=== PATIENT | female | born 1955 | race Caucasian/White ===

== ENCOUNTER 2017-01-27 12:11 | Observation (INO) | payer MEDICAID ==
[2017-01-27] MEDS ORDERED: Morphine 2 MG/ML Syringe IVPUSH ONE (12:24)
[2017-01-27 12:48] VITALS: BP 124/51
[2017-01-27] MEDS ORDERED: Aspirin 81 MG Tab.Chew PO ONE (12:54)
[2017-01-27] MEDS ORDERED: Nitroglycerin 0.4 MG Tab.SL SL ONE (12:54)
[2017-01-27] MEDS ORDERED: Morphine 10 MG/ML Syringe ONE (13:19)
[2017-01-27] MEDS ORDERED: ALBUTEROL IH PRN (13:45)
[2017-01-27] MEDS ORDERED: Non-Formulary Medication 1 Each (Nitroglycerin [Nitrostat] 0.4 MG) SL PRN (13:45)
[2017-01-27] MEDS ORDERED: Sodium Chloride 0.9% 10 ML Syringe FLUSH PRN (13:49)
--- NOTE | 2017-01-27 16:59 | PN ---
DATE OF VISIT: This patient was seen in the emergency room for chest pain, relieved by nitro temporarily, it did reoccur later on and morphine was used 4 mg x1. Cardiac workup was negative. The patient did have a recent stress test just a few days ago with the initial reports showing negative for reversible perfusion defects with an ejection fraction of 73%. I did consult with Dr. Ramirez. The patient will be admitted for observation with followup troponin scheduled at 4:30 this afternoon. For further details, refer to the appropriate sections in [facility]. CRS/MODL /[id number]
--- NOTE | 2017-01-27 17:27 | CR ---
Date of Service: 01/27/17 Clinical Data: Chest pain. AP CHEST Comparison is made to a prior exam dated 04/05/2012. The patient has taken a poor inspiration. The heart size is within normal limits. The lungs are clear. No pneumothorax. No pleural effusions. No areas of consolidation. [id number] [facility]
[2017-01-27] MEDS ORDERED: Non-Formulary Medication 1 Each (Fluticasone/Salmeterol [Advair 250-50 Diskus] 1 EACH) IH SCH (20:00)
--- NOTE | 2017-01-30 08:59 | ER ---
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 The patient states it feels like pressure and the pain has been as high as 5/10. She has not been coughing. She denies any problems with shortness of breath, wheezing, nausea, or vomiting. The patient states she did take nitroglycerin twice, and each time it helped. She currently rates her pain at 5/10. The patient tells me that she recently had a stress test just a few days ago, and she states that she failed it. She states when they gave her the medication she did not respond well to the medication. The patient tells me that she was put on a beta-cuca medication and is being monitored by Dr. Ramirez. PAST MEDICAL HISTORY: 1. Obesity, status post gastric bypass. 2. Nonsurgical dumping syndrome. 3. Gallbladder disease. 4. Chronic low back pain. 5. GERD. 6. Hypertension. 7. Bronchitis or asthma. OBJECTIVE: GENERAL APPEARANCE: The patient is awake and alert and in no obvious distress. VITAL SIGNS: Reviewed. Initial blood pressure 124/51. She is afebrile. Pulse is 60. O2 sats are 98% on room air. HEENT: Oral mucous membranes are moist. Tonsils not enlarged or injected. Pharynx noninflamed. NECK: Supple. LUNGS: Clear. CARDIAC: Heart sounds distinct without murmurs. Regular rate and rhythm. ABDOMEN: Soft and protuberant. There is mild pressure with palpation that she states is chronic. SKIN: Warm and dry. EXTREMITIES: The patient does not have edema of her ankles or feet. INITIAL TREATMENT: Nitroglycerin was given one more time which did relieve the patient's chest pain. An EKG shows a normal sinus rhythm with a ventricular rate of 55. LABORATORY DATA: Labs done today included CBC and PT/INR, they are both normal. Troponin, normal. BNP is normal. Comprehensive metabolic panel is unremarkable as well. Chest x-ray appears normal to me. DIAGNOSIS: Chest pain with a negative initial workup. TREATMENT PLAN: At this point, I did consult with Dr. Ramirez. The patient will be admitted for observation with a repeat troponin later on this afternoon. At this point, the patient did start to have an increase in chest pain again and tightness. She was given morphine 4 mg which quickly reduced her chest pain symptoms. Dr Ramirez will assume care for the patient at this point. SALLIE/HONG /[id number] MTDD
--- NOTE | 2017-02-14 09:23 | PCM.DCSUM1 ---
Discharge Summary - Discharge Data Discharge Date: 01/27/17 Discharge Disposition: Home, Self-Care 01 Condition: Good - Discharge Diagnosis/Problem(s) (1) Angina pectoris SNOMED Code(s): 047798235 ICD Code: I20.9 - ANGINA PECTORIS, UNSPECIFIED Status: Acute - Patient Instructions Diet: Usual Diet as Tolerated Fluid Restriction: 2000 mL Activity: As Tolerated Driving: Do Not Drive - Discharge Plan Home Medications: Home Meds Albuterol [Ventolin HFA] 2 inhalation IH Q6H PRN 04/09/16 [History] Ferrous Sulfate 325 mg PO WITHDINNER 04/09/16 [History] Flaxseed/Omega3,6,9/Fatty Acid [Flax Seed Oil 1,300 mg Softgel] 1 each PO DAILY 04/09/16 [History] Gabapentin [Neurontin] 100 mg PO QID 04/09/16 [History] Nitroglycerin [Nitrostat] 0.4 mg SL ASDIRECTED PRN 04/09/16 [History] Raymond-3/DHA/Epa/Fish Oil [Fish Oil 1,000 mg Softgel] 1 each PO BEDTIME 04/09/16 [History] Papaya [Papaya Enzyme] 1 each PO DAILY 04/09/16 [History] Simvastatin [Zocor] 40 mg PO BEDTIME 04/09/16 [History] Triamterene/Hydrochlorothiazid [Triamterene-HCTZ 37.5-25 MG] 1 each PO DAILY [History] MV,Ca,Min/FA/Herbal No.157 [Estroven Max Strength Caplet] 1 tab PO QPM 08/10/16 [History] Vitamin B Complex 100 NO.2 [Balanced B-100] 100 mg PO BID 08/11/16 [History] Calcium Citrate/Vitamin D3 [Citracal-Vit D 200 mg-250 Tab] 4 each PO DAILY 01/13 [History] Docusate Sodium [Doc-Q-Lace] 100 mg PO DAILY 01/13/17 [History] Ergocalciferol (Vitamin D2) [Vitamin D] 2,000 unit PO DAILY 01/13/17 [History] Esomeprazole [NexIUM] 40 mg PO ACBREAKFAST 01/13/17 [History] Fluticasone/Salmeterol [Advair 250-50 Diskus] 1 each IH BID 01/13/17 [History] Glucosamine/D3/Boswellia Jaqui [Osteo Bi-Flex Tablet] 1 each PO BID 01/13/17 [ History] Hydrochlorothiazide 25 mg PO DAILY 01/13/17 [History] Lysine 500 mg PO DAILY 01/13/17 [History] Metoprolol Succinate [Toprol XL] 25 mg PO DAILY 01/13/17 [History] Multivitamin/Iron/Folic Acid [Sentry Tablet] 1 each PO BID 01/13/17 [History] Oxybutynin [Oxybutynin ER] 5 mg PO DAILY 01/13/17 [History] Potassium Gluconate 99 mg PO DAILY 01/13/17 [History] Ubidecarenone [Coq-10] 100 mg PO BID 01/13/17 [History] Patient Handouts: Angina Pectoris Forms: ED Department Discharge Referrals: Dann Ramirez MD [Physician] - - Discharge Summary/Plan Comment DC Time >30 min.: Yes Discharge Summary/Plan Comment: Counseled on angina symptoms. Discussed negative cardiac markers or EKG changes. Discussed follow up in clinic and further evaluation by Cardiology and possible further management procedures. Patient to f/u with me scheduled in clinic. F/u as directed and as needed. - Patient Data Vitals - Most Recent: Last Vital Signs Temp 36.8 C 01/27/17 12:15 Pulse 55 L 01/27/17 14:48 Resp 12 01/27/17 12:15 BP 124/51 L 01/27/17 12:15 Pulse Ox 98 01/27/17 12:15 Weight - Most Recent: 77.111 kg Med Orders - Current: Current Medications Discontinued Medications Aspirin (Aspirin) 324 mg PO ONETIME ONE Stop: 01/27/17 12:55 Last Admin: 01/27/17 12:18 Dose: 324 mg Morphine Sulfate (Morphine) 4 mg IVPUSH ONETIME ONE Stop: 01/27/17 12:25 Last Admin: 01/27/17 13:24 Dose: 4 mg Morphine Sulfate (Morphine) Confirm Administered Dose 10 mg .ROUTE .STK-MED ONE Stop: 01/27/17 13:20 Nitroglycerin (Nitrostat) 0.4 mg SL ONETIME ONE Stop: 01/27/17 12:55 Last Admin: 01/27/17 12:15 Dose: 0.4 mg Non-Formulary Medication (Albuterol [Ventolin Hfa]) 2 inhalation IH Q6H PRN PRN Reason: Other Non-Formulary Medication (Fluticasone/Salmeterol [Advair 250-50 Diskus]) 1 each IH BID RUPAL Non-Formulary Medication (Nitroglycerin [Nitrostat]) 0.4 mg SL ASDIRECTED PRN PRN Reason: Chest Pain Sodium Chloride (Saline Flush) 10 ml FLUSH ASDIRECTED PRN PRN Reason: Keep Vein Open *Q Meaningful Use (DIS) - VTE *Q VTE Criteria *Q: - Stroke *Q Stroke Criteria *Q: - AMI *Q AMI Criteria *Q:
== END 2017-01-27 17:19 | disposition home or self-care (01) ==
LOC: LB.ED 12:11 → LB.MS 13:43
PROVIDERS: ADMIT Physician Assistant; ATTEND Family Medicine
DX: I20.9 Angina pectoris, unspecified (principal); E66.9 Obesity, unspecified; I10 Essential (primary) hypertension; K21.9 Gastro-esophageal reflux disease without esophagitis; Z88.0 Allergy status to penicillin; Z88.2 Allergy status to sulfonamides; Z88.8 Allergy status to other drugs, medicaments and biological substances; Z79.899 Other long term (current) drug therapy; Z91.018 Allergy to other foods; Z98.84 Bariatric surgery status; G89.29 Other chronic pain; M54.5 Low back pain
CPT/HCPCS: 36415; 71010; 80053; 83880; 84484; 85025; 85610; 93005; 96374; 99285; A9270; G0378; J2270

== ENCOUNTER 2017-02-04 11:11 | Emergency (ER) | payer MEDICAID ==
[2017-02-04 11:45] VITALS: BP 114/49
--- NOTE | 2017-02-04 11:47 | EDM.PDOC ---
ED HPI GENERAL MEDICAL PROBLEM - General Time Seen by Provider: 02/04/17 11:15 Source of Information: Reports: Patient History Limitations: Reports: No limitations - History of Present Illness INITIAL COMMENTS - FREE TEXT/NARRATIVE: According to patient she has been having chest pain since last night. Hurts over the midchest. Pain got worse around 10 am today. Is not asso with exertion. Pt was lifting some empty boxes around 10 am and got worse. No shortness of breath, wheezing. No cough, fever or chills. No sweating. Onset Date: 02/03/17 Onset Time: 20:00 Duration: Getting worse, Waxing/waning Quality: Reports: Ache Severity: moderate - Related Data Allergies Allergy/AdvReac Type Severity Reaction Status Date / Time aspirin Allergy Cannot Verified 01/13/17 14:48 Remember Penicillins Allergy Other Verified 01/13/17 14:48 Sulfa (Sulfonamide Allergy Other Verified 01/13/17 14:48 Antibiotics) Home Meds: Home Meds Albuterol [Ventolin HFA] 2 inhalation IH Q6H PRN 04/09/16 [History] Ferrous Sulfate 325 mg PO WITHDINNER 04/09/16 [History] Flaxseed/Omega3,6,9/Fatty Acid [Flax Seed Oil 1,300 mg Softgel] 1 each PO DAILY 04/09/16 [History] Gabapentin [Neurontin] 100 mg PO QID 04/09/16 [History] Nitroglycerin [Nitrostat] 0.4 mg SL ASDIRECTED PRN 04/09/16 [History] Sears-3/DHA/Epa/Fish Oil [Fish Oil 1,000 mg Softgel] 1 each PO BEDTIME 04/09/16 [History] Papaya [Papaya Enzyme] 1 each PO DAILY 04/09/16 [History] Simvastatin [Zocor] 40 mg PO BEDTIME 04/09/16 [History] Triamterene/Hydrochlorothiazid [Triamterene-HCTZ 37.5-25 MG] 1 each PO DAILY [History] MV,Ca,Min/FA/Herbal No.157 [Estroven Max Strength Caplet] 1 tab PO QPM 08/10/16 [History] Vitamin B Complex 100 NO.2 [Balanced B-100] 100 mg PO BID 08/11/16 [History] Calcium Citrate/Vitamin D3 [Citracal-Vit D 200 mg-250 Tab] 4 each PO DAILY 01/13 [History] Docusate Sodium [Doc-Q-Lace] 100 mg PO DAILY 01/13/17 [History] Ergocalciferol (Vitamin D2) [Vitamin D] 2,000 unit PO DAILY 01/13/17 [History] Esomeprazole [NexIUM] 40 mg PO ACBREAKFAST 01/13/17 [History] Fluticasone/Salmeterol [Advair 250-50 Diskus] 1 each IH BID 01/13/17 [History] Glucosamine/D3/Boswellia Jaqui [Osteo Bi-Flex Tablet] 1 each PO BID 01/13/17 [ History] Hydrochlorothiazide 25 mg PO DAILY 01/13/17 [History] Lysine 500 mg PO DAILY 01/13/17 [History] Metoprolol Succinate [Toprol XL] 25 mg PO DAILY 01/13/17 [History] Multivitamin/Iron/Folic Acid [Sentry Tablet] 1 each PO BID 01/13/17 [History] Oxybutynin [Oxybutynin ER] 5 mg PO DAILY 01/13/17 [History] Potassium Gluconate 99 mg PO DAILY 01/13/17 [History] Ubidecarenone [Coq-10] 100 mg PO BID 01/13/17 [History] Past Medical History HEENT History: Reports: Cataract Cardiovascular History: Reports: Hypertension Respiratory History: Reports: Asthma, Sleep apnea Gastrointestinal History: Reports: GERD Genitourinary History: Reports: None Other OB/BYN History: tubal , parity: 0, gravity: 0 Musculoskeletal History: Reports: Arthritis, Back pain, chronic, Osteoarthritis Neurological History: Reports: Seizure Other Neuro History: seizures as a child none as an adult Endocrine/Metabolic History: Reports: Diabetes, type II Hematologic History: Reports: B12 deficiency Oncologic (Cancer) History: Reports: None - Past Surgical History HEENT Surgical History: Reports: None Other HEENT Surgeries/Procedures: wears glasses, hearing fine Respiratory Surgical History: Reports: None GI Surgical History: Reports: Bariatric procedure, EGD, Hernia, abdominal, Other (see below) Other GI Surgeries/Procedures: tummy tuck Female Surgical History: Reports: D&C Other Female Surgeries/Procedures: UI : with pad use: 4-5 , stress UI, LBP , and hip pain history. frequency of leakage per day: through the day, with any motion. urge UI as well: clinical impression: mixed UI: Sandvick outcome tool score would be indicative of severe level Endocrine Surgical History: Reports: None Neurological Surgical History: Reports: None Other Neurological Surgeries/Procedures: seizures when young, past history of HAs Musculoskeletal Surgical History: Reports: None Other Musculoskeletal Surgeries/Procedures:: LBP, hip pain, pelvic floor weakness Social & Family History - Family History Cardiac: Reports: Heart failure - Tobacco Use Smoking Status *Q: Unknown Ever Smoked Second Hand Smoke Exposure: No - Caffeine Use Caffeine Use: Reports: None - Recreational Drug Use Recreational Drug Use: No Drug Use in Last 12 Months: Yes ED ROS GENERAL - Review of Systems Review Of Systems: See Below Constitutional: Denies: fever, chills, malaise, weakness, diaphoresis HEENT: Denies: Hearing loss, Nosebleed, Throat pain, Throat swelling Respiratory: Denies: Shortness of Breath, Wheezing, Cough, Sputum Cardiovascular: Reports: Chest pain. Denies: Dyspnea on exertion, Edema, Lightheadedness GI/Abdominal: Denies: Abdominal pain, Anorexia, Nausea, Vomiting : Denies: dysuria, flank pain Musculoskeletal: Denies: shoulder pain, arm pain, joint pain, joint swelling Skin: Denies: jaundice, mottled, pruritis, rash Neurological: Denies: Confusion, Dizziness ED EXAM, GENERAL - Physical Exam Exam: See Below Exam Limited By: No limitations General Appearance: alert, WD/WN, no apparent distress Eye Exam: bilateral eye: EOMI, PERRL Ears: normal external exam, normal canal, hearing grossly normal, normal TMs Ear Exam: bilateral ear: auricle normal, canal normal, TM normal Nose: normal inspection, normal mucosa, no blood Throat/Mouth: Normal inspection, Normal lips, Normal teeth, Normal gums, Normal oropharynx, Normal voice, No airway compromise Head: atraumatic, normocephalic Neck: normal inspection, supple, non-tender, full range of motion Respiratory/Chest: no respiratory distress, lungs clear, normal breath sounds, no accessory muscle use, other (Tender over the upper costochondral junctions to pressure. very sensitive to pressure.) Cardiovascular: normal peripheral pulses, regular rate, rhythm, no edema, no gallop, no JVD, no murmur, no rub GI/Abdominal: normal bowel sounds, soft, non tender, no organomegaly, no distention, no abnormal bruit, no mass EKG INTERPRETATION EKG Date: 02/04/17 Rhythm: NSR Rate (beats/min): 60 [place]: normal P-wave: present QRS: normal ST-T: normal QT: normal Course - Vital Signs Text/Narrative:: Pt's EKG is in sinus rhythm and regular. Her CBC is normal and troponin is negative. She gonzales shave elicitable chest pain over the upper costochondral junctions. She has developed costochondritis. I have advised tylenol 500mg 3 times daily and intermittent heat 3-4 times daily. Last Recorded V/S: Last Vital Signs Temp 97 F 02/04/17 11:40 Pulse 63 02/04/17 11:40 Resp 16 02/04/17 11:40 BP 114/49 L 02/04/17 11:40 Pulse Ox 100 02/04/17 11:40 - Orders/Labs/Meds Orders: Active Orders 24 hr Category Date Time Status EKG Documentation Completion [RC] ASDIRECTED Care 02/04/17 11:32 Ordered Labs: Laboratory Tests 02/04/17 02/04/17 Range/Units 11:40 11:40 WBC 9.2 (4.0-11.0) K/uL RBC 4.45 (3.80-5.80) M/uL Hgb 12.6 (11.5-16.5) g/dL Hct 37.9 (37.0-47.0) % MCV 85 (76-96) fL MCH 28.3 (27.0-32.0) pg MCHC 33.2 (31.0-35.0) g/dL RDW 14.6 (11.0-16.0) % Plt Count 279 (150-500) K/uL MPV 9.5 (6.0-10.0) fL Neut % (Auto) 71.7 H (45.0-70.0) % Lymph % (Auto) 18.7 L (20.0-40.0) % [place] % (Auto) 8.4 (3.0-10.0) % Eos % (Auto) 1.0 (1.0-5.0) % Baso % (Auto) 0.2 (0.0-0.5) % Neut # (Auto) 6.61 (2.00-7.50) K/uL Lymph # (Auto) 1.72 (1.50-4.00) K/uL [place] # (Auto) 0.77 (0.20-0.80) K/uL Eos # (Auto) 0.09 (0.04-0.40) K/uL Baso # (Auto) 0.02 (0.02-0.10) K/uL Troponin I < 0.017 (0.000-0.060) ng/mL Departure - Departure Time of Disposition: 12:30 Disposition: Home, Self-Care 01 Condition: fair Clinical Impression: Costochondritis Referrals: PCP,Unknown [Primary Care Provider] - - Problem List & Annotations (1) Costochondritis SNOMED Code(s): 57051081 Code(s): M94.0 - CHONDROCOSTAL JUNCTION SYNDROME [TIETZE] Status: Acute Current Visit: Yes - Problem List Review Problem List Initiated/Reviewed/Updated: Yes - My Orders Last 24 Hours: My Active Orders 02/04/17 11:32 EKG Documentation Completion [RC] ASDIRECTED - Assessment/Plan Last 24 Hours: My Active Orders 02/04/17 11:32 EKG Documentation Completion [RC] ASDIRECTED Assessment:: Costochondritis Plan: Pt's EKG is in sinus rhythm and regular. Her CBC is normal and troponin is negative. She does shave elicitable chest pain over the upper costochondral junctions. She has developed costochondritis. I have advised tylenol 500mg 3 times daily and intermittent heat 3-4 times daily. Followup with primary care of monday if symptoms worsen.
== END 2017-02-04 12:15 | disposition home or self-care (01) ==
LOC: LB.ED 11:11
DX: M94.0 Chondrocostal junction syndrome [Tietze] (principal); I10 Essential (primary) hypertension; J45.909 Unspecified asthma, uncomplicated; K21.9 Gastro-esophageal reflux disease without esophagitis; M19.90 Unspecified osteoarthritis, unspecified site; E11.9 Type 2 diabetes mellitus without complications; Z79.899 Other long term (current) drug therapy; Z88.0 Allergy status to penicillin; Z88.2 Allergy status to sulfonamides; Z88.6 Allergy status to analgesic agent; Z98.84 Bariatric surgery status
CPT/HCPCS: 36415; 84484; 85025; 93005; 99285-25

== ENCOUNTER 2017-03-07 11:23 | Emergency (ER) | payer MEDICAID ==
[2017-03-07] MEDS ORDERED: Sodium Chloride 0.9% 10 ML Syringe FLUSH PRN (12:05)
[2017-03-07 14:53] VITALS: BP 112/49
--- NOTE | 2017-03-08 06:43 | ER ---
HISTORY OF PRESENT ILLNESS: The patient came to the ER this morning with approximately 12 hours of intermittent chest discomfort that goes to her back and would also go up to her left shoulder. She denies any other problems associated with this. No fevers. No nausea, vomiting, or diarrhea. No shortness of breath. No dyspnea on exertion. No palpitations. No diaphoresis. No recent trauma. She does have a history of gastric bypass, mild intermittent asthma, hypothyroidism, adult onset diabetes, hypertension, hyperlipidemia, history of SVT, and history of electrolyte abnormalities. PHYSICAL EXAMINATION: GENERAL: Reveals an anxious female, alert and oriented x3. No acute distress. VITAL SIGNS: Room air saturation 99%, heart rate 75, blood pressure upon admission 179/51, after she calmed down her systolics dropped into the 105+/-5 range. SKIN: Warm and dry. EYES: Show EOMI, PERRLA. HEART: Shows a regular rate and rhythm. No murmurs, rubs, or gallops. No S3, no S4. LUNGS: Clear. ABDOMEN: Soft. Bowel sounds x4. No mass nor organomegaly. She does have some mild right upper quadrant tenderness. BACK: Shows no CVA or cord tenderness. EXTREMITIES: Show no clubbing, cyanosis, or edema. No palpable cords. NEURO: Intact. ASSESSMENT: Atypical chest pain, not cardiac. She also is noted to have hypomagnesemia on her laboratories. PLAN: The patient had an EKG done, which was unchanged from her baseline. Troponins were negative. White count was normal. CMP was normal except for sugar of 212. TSH was normal. Magnesium is low at 1.4. The patient received 1 g of magnesium IV. After the patient completed her IV therapy, she was able to walk around and move without any new complaints. We talked about in the future of changing her diuretic. She might do better with some other diuretic such as Aldactone. She has had problems with her electrolytes (NA/K) in the past.In the meantime, I told her not to change her medicines to start magnesium [id number] daily and to follow up in clinic next week as we have some outside labs still pending. She will be made up-to-date with her monitoring of diabetes and her gastric bypass.Thyroid monitoring will be done from today's lab work. She does have a Cardiology followup for her atypical chest pain. She was seen by roll plugger last week who felt the chest pain was noncardiac in nature. However, due to risk factors, they will do an outpatient angiogram. and it is as It is unlikely that today's symptoms are cardiac in nature. Should the patient worsen she can return to hospital or clinic for further evaluation. SHAE /[id number] MTDD
[2017-03-09 16:37] LABS: UNSATURATED IRON BIND CAPACITY 322 ug/dL (112-347)
== END 2017-03-07 14:22 | disposition home or self-care (01) ==
LOC: LB.ED 11:23
DX: R07.89 Other chest pain (principal); E83.42 Hypomagnesemia; I10 Essential (primary) hypertension; J45.909 Unspecified asthma, uncomplicated; E03.9 Hypothyroidism, unspecified; E78.5 Hyperlipidemia, unspecified; E11.9 Type 2 diabetes mellitus without complications; Z98.84 Bariatric surgery status
CPT/HCPCS: 36415; 80053; 81001; 82043; 82150; 82607; 82728; 83036; 83540; 83550; 83690; 83735; 84443; 84484; 85025; 85651; 93005; 99285; J3475

== ENCOUNTER 2018-12-12 16:35 | Emergency (ER) | payer MEDICAID ==
[2018-12-12] MEDS ORDERED: Aspirin 81 MG Tab.Chew PO ONE ×2 (17:05→17:08)
[2018-12-12] MEDS ORDERED: Sodium Chloride 0.9% 10 ML Syringe FLUSH PRN (17:07)
--- NOTE | 2018-12-12 17:16 | EDM.PDOC ---
ED HPI GENERAL MEDICAL PROBLEM - General Chief Complaint: Chest Pain Stated Complaint: chest pain Time Seen by Provider: 12/12/18 17:05 Source of Information: Reports: Patient, RN History Limitations: Reports: No Limitations - History of Present Illness INITIAL COMMENTS - FREE TEXT/NARRATIVE: 63 yr female presents with chest pain that started around 2pm today. 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 States she did take nitro 1 tablet and one tablet of medication for anxiety and symptoms were relieved. She was feeling very cold at this time and thought she was low on her blood sugar and she took 1 glucose tablet and 1 piece of candy. States her left hand was hurting and she did feel some nausea with this. No pain into the jaw and none in the back. She did have some tea and warmed up with blankets. States she did have a couple BM today at this time and no diarrhea and BM was soft. She is still feeling cold. - Related Data Allergies Allergy/AdvReac Type Severity Reaction Status Date / Time Penicillins Allergy Other Verified 12/12/18 17:40 Sulfa (Sulfonamide Allergy Other Verified 12/12/18 17:40 Antibiotics) Home Meds: Home Meds Albuterol [Ventolin HFA] 2 inhalation IH Q6H PRN 04/09/16 [History] Ferrous Sulfate 325 mg PO WITHDINNER 04/09/16 [History] Flaxseed/Omega3,6,9/Fatty Acid [Flax Seed Oil 1,300 mg Softgel] 1 each PO DAILY 04/09/16 [History] Gabapentin [Neurontin] 100 mg PO QID 04/09/16 [History] Nitroglycerin [Nitrostat] 0.4 mg SL ASDIRECTED PRN 04/09/16 [History] [place]-3/DHA/Epa/Fish Oil [Fish Oil 1,000 mg Softgel] 1 each PO BEDTIME 04/09/16 [History] Papaya [Papaya Enzyme] 1 each PO DAILY 04/09/16 [History] Simvastatin [Zocor] 40 mg PO BEDTIME 04/09/16 [History] Triamterene/Hydrochlorothiazid [Triamterene-HCTZ 37.5-25 MG] 1 each PO DAILY [History] MV,Ca,Min/FA/Herbal No.157 [Estroven Max Strength Caplet] 1 tab PO QPM 08/10/16 [History] Vitamin B Complex 100 NO.2 [Balanced B-100] 100 mg PO BID 08/11/16 [History] Calcium Citrate/Vitamin D3 [Citracal-Vit D 200 mg-250 Tab] 4 each PO DAILY 01/13 [History] Docusate Sodium [Doc-Q-Lace] 100 mg PO DAILY 01/13/17 [History] Ergocalciferol (Vitamin D2) [Vitamin D] 2,000 unit PO DAILY 01/13/17 [History] Esomeprazole [NexIUM] 40 mg PO ACBREAKFAST 01/13/17 [History] Fluticasone/Salmeterol [Advair 250-50 Diskus] 1 each IH BID 01/13/17 [History] Glucosamine/D3/Boswellia Jaqui [Osteo Bi-Flex Tablet] 1 each PO BID 01/13/17 [ History] Hydrochlorothiazide 25 mg PO DAILY 01/13/17 [History] Lysine 500 mg PO DAILY 01/13/17 [History] Metoprolol Succinate [Toprol XL] 25 mg PO DAILY 01/13/17 [History] Multivitamin/Iron/Folic Acid [Sentry Tablet] 1 each PO BID 01/13/17 [History] Oxybutynin [Oxybutynin ER] 5 mg PO DAILY 01/13/17 [History] Potassium Gluconate 99 mg PO DAILY 01/13/17 [History] Ubidecarenone [Coq-10] 100 mg PO BID 01/13/17 [History] Ciprofloxacin HCl [Cipro] 500 mg PO BID #8 tablet 12/12/18 [Rx] LORazepam [Ativan] 0.5 mg PO Q8HR PRN 12/12/18 [History] Past Medical History HEENT History: Reports: Cataract Cardiovascular History: Reports: Hypertension Respiratory History: Reports: Asthma, Sleep Apnea Gastrointestinal History: Reports: GERD Genitourinary History: Reports: None 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 , parity: 0, gravity: 0 Musculoskeletal History: Reports: Arthritis, Back Pain, Chronic, Osteoarthritis Neurological History: Reports: Seizure Other Neuro History: seizures as a child none as an adult Endocrine/Metabolic History: Reports: Diabetes, Type II Hematologic History: Reports: B12 Deficiency Oncologic (Cancer) History: Reports: None - Infectious Disease History Infectious Disease History: Reports: None - Past Surgical History HEENT Surgical History: Reports: None Other HEENT Surgeries/Procedures: wears glasses, hearing fine Other Cardiovascular Surgeries/Procedures: reports she is scheduled for Cardiac Cath in [facility] 03/10/17 GI Surgical History: Reports: Bariatric Procedure, EGD, Hernia, Abdominal, Other (See Below) Female Surgical History: Reports: D&C Other Female Surgeries/Procedures: UI : with pad use: 4-5 , stress UI, LBP , and hip pain history. frequency of leakage per day: through the day, with any motion. urge UI as well: clinical impression: mixed UI: [place] outcome tool score would be indicative of severe level Endocrine Surgical History: Reports: None Neurological Surgical History: Reports: None Other Neurological Surgeries/Procedures: seizures when young, past history of HAs Musculoskeletal Surgical History: Reports: None Social & Family History - Family History Family Medical History: Noncontributory Cardiac: Reports: Heart Failure - Caffeine Use Caffeine Use: Reports: None ED ROS GENERAL - Review of Systems Review Of Systems: See Below Constitutional: Reports: Fever, Chills, Weakness HEENT: Reports: No Symptoms Respiratory: Reports: No Symptoms Cardiovascular: Reports: Chest Pain GI/Abdominal: Reports: No Symptoms : Reports: Other (wears incontinent pad) Musculoskeletal: Reports: No Symptoms Skin: Reports: No Symptoms Neurological: Reports: No Symptoms Psychiatric: Reports: No Symptoms Hematologic/Lymphatic: Reports: No Symptoms ED EXAM, GENERAL - Physical Exam Exam: See Below Exam Limited By: No Limitations General Appearance: Alert, No Apparent Distress Ears: Normal External Exam, Hearing Grossly Normal Nose: Normal Inspection, Normal Mucosa Throat/Mouth: Normal Inspection, Normal Lips, Normal Voice, No Airway Compromise Head: Atraumatic, Normocephalic Neck: Normal Inspection, Supple, Non-Tender Respiratory/Chest: No Respiratory Distress, Lungs Clear, Normal Breath Sounds Cardiovascular: Normal Peripheral Pulses, Regular Rate, Rhythm, No Edema GI/Abdominal: Soft, Non-Tender Back Exam: Normal Inspection Extremities: Normal Inspection, Non-Tender, No Pedal Edema Neurological: Alert, Oriented, Normal Cognition Psychiatric: Normal Affect, Normal Mood Skin Exam: Warm, Dry, Normal Color Lymphatic: No Adenopathy EKG INTERPRETATION EKG Date: 12/12/18 Time: 16:47 Rhythm: NSR Comstock: Normal P-Wave: Present QRS: Normal ST-T: Normal QT: Normal Course - Vital Signs Last Recorded V/S: Last Vital Signs Temp 100.4 F 12/12/18 17:09 Pulse 82 12/12/18 17:43 Resp 16 12/12/18 17:09 BP 108/47 L 12/12/18 17:43 Pulse Ox 100 12/12/18 17:09 - Orders/Labs/Meds Orders: Active Orders 24 hr Category Date Time Status Cardiac Monitoring [RC] .As Directed Care 12/12/18 17:04 Active EKG Documentation Completion [RC] ASDIRECTED Care 12/12/18 16:48 Active CULTURE URINE [RM] Stat Lab 12/12/18 18:15 Sodium Chloride 0.9% [Saline Flush] Med 12/12/18 17:07 Active 10 ml FLUSH ASDIRECTED PRN Saline Lock Insert [OM.PC] Routine Oth 12/12/18 17:07 Ordered Medication Orders Sodium Chloride (Saline Flush) 10 ml FLUSH ASDIRECTED PRN PRN Reason: Keep Vein Open Labs: Laboratory Tests 12/12/18 12/12/18 12/12/18 Range/Units 17:00 17:00 17:42 WBC 16.3 H D (4.0-11.0) K/uL RBC 4.50 (3.80-5.80) M/uL Hgb 12.8 (11.5-16.5) g/dL Hct 38.6 (37.0-47.0) % MCV 86 (76-96) fL MCH 28.4 (27.0-32.0) pg MCHC 33.2 (31.0-35.0) g/dL RDW 14.6 (11.0-16.0) % Plt Count 287 (150-500) K/uL MPV 9.2 (6.0-10.0) fL Neut % (Auto) 91.0 H (45.0-70.0) % Lymph % (Auto) 4.2 L (20.0-40.0) % Citrus % (Auto) 4.4 (3.0-10.0) % Eos % (Auto) 0.3 L (1.0-5.0) % Baso % (Auto) 0.1 (0.0-0.5) % Neut # (Auto) 14.85 H (2.00-7.50) K/uL Lymph # (Auto) 0.69 L (1.50-4.00) K/uL Citrus # (Auto) 0.71 (0.20-0.80) K/uL Eos # (Auto) 0.05 (0.04-0.40) K/uL Baso # (Auto) 0.02 (0.02-0.10) K/uL Sodium 137 (136-145) mmol/L Potassium 3.8 (3.5-5.1) mmol/L Chloride 98 (98-107) mmol/L Carbon Dioxide 30.5 (21.0-32.0) mmol/L Anion Gap 12.3 (5.0-15.0) mmol/L BUN 20 (8-26) mg/dL Creatinine 0.73 (0.55-1.02) mg/dL Est Cr Clr Drug Dosing TNP Estimated GFR (MDRD) > 60 (>60) MLS/MIN BUN/Creatinine Ratio 27.4 H (6-25) Glucose 106 H (74-100) mg/dL Calcium 9.3 (8.5-10.1) mg/dL Total Bilirubin 1.0 D (0.0-1.0) mg/dL AST 38 H (15-37) U/L ALT 69 (12-78) U/L Alkaline Phosphatase 51 (46-116) U/L Troponin I < 0.017 (0.000-0.060) ng/mL Total Protein 7.5 (6.4-8.2) g/dL Albumin 3.6 (3.4-5.0) g/dL Globulin 3.9 (2.2-4.2) g/dL Albumin/Globulin Ratio 0.9 (0.8-2.0) Urine Color Yellow Urine Appearance Slightly cloudy (CLEAR) Urine pH 7.5 (5.0-8.0) Ur Specific [place] 1.020 (1.003-1.030) Urine Protein Negative (NEGATIVE) mg/dL Urine Glucose (UA) Negative (NEGATIVE) mg/dL Urine Ketones Negative (NEGATIVE) mg/dL Urine Occult Blood Negative (NEGATIVE) Urine Nitrite Positive H (NEGATIVE) Urine Bilirubin Negative (NEGATIVE) Urine Urobilinogen 0.2 (0.2-1.0) E.U./dL Ur Leukocyte Esterase Negative (NEGATIVE) Urine RBC 0-5 H /HPF Urine WBC 0-5 H /HPF Ur Squamous Epith Cells Few /HPF Urine Bacteria Few /HPF Meds: Medications Generic Name Dose Route Start Last Admin Trade Name Freq PRN Reason Stop Dose Admin Sodium Chloride 10 ml 12/12/18 17:07 Saline Flush FLUSH ASDIRECTED PRN Keep Vein Open Discontinued Medications Generic Name Dose Route Start Last Admin Trade Name Freq PRN Reason Stop Dose Admin Aspirin 162 mg 12/12/18 17:05 Aspirin PO 12/12/18 17:06 ONETIME ONE Aspirin 81 mg 12/12/18 17:08 Aspirin PO 12/12/18 17:09 ONETIME ONE - Re-Assessments/Exams Free Text/Narrative Re-Assessment/Exam: 12/12/18 18:03 Review of EKG with NSR, elevated WBC noted. Troponins are negative today. Will get U/A w micro. States some lightheadedness with getting up to bathroom. States she did take the anxiety medication today and does notice this makes her feel lightheaded. 12/12/18 18:31 U/A is positive nitrites. Will treat with Cipro 500 mg PO bid X 7 days. Rx in ER is for 3 days. Additional 4 days sent to pharmacy. Recommend rest today, increase fluid intake by 2 more glasses of water daily, change peripad more frequently. Recommend eating before taking antibiotic. Limit use of medication for anxiety. If need to take this, try taking 0.5 tablet as the full tablet made her feel light headed. Will discharge to care of . 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 Take Cipro 2 x day for 7 days. Return to clinic next week to see Deepika. Call [phone]. Drink plenty of fluids and change pad often if able. - My Orders Last 24 Hours: My Active Orders 12/12/18 16:48 EKG Documentation Completion [RC] ASDIRECTED 12/12/18 17:04 Cardiac Monitoring [RC] .As Directed 12/12/18 17:07 Sodium Chloride 0.9% [Saline Flush] 10 ml FLUSH ASDIRECTED PRN Saline Lock Insert [OM.PC] Routine 12/12/18 18:15 CULTURE URINE [RM] Stat - Assessment/Plan Last 24 Hours: My Active Orders 12/12/18 16:48 EKG Documentation Completion [RC] ASDIRECTED 12/12/18 17:04 Cardiac Monitoring [RC] .As Directed 12/12/18 17:07 Sodium Chloride 0.9% [Saline Flush] 10 ml FLUSH ASDIRECTED PRN Saline Lock Insert [OM.PC] Routine 12/12/18 18:15 CULTURE URINE [RM] Stat Plan: U/A is positive nitrites. Will treat with Cipro 500 mg PO bid X 7 days. Rx in ER is for 3 days. Additional 4 days sent to pharmacy. Recommend rest today, increase fluid intake by 2 more glasses of water daily, change peripad more frequently. Recommend eating before taking antibiotic. Limit use of medication for anxiety. If need to take this, try taking 0.5 tablet as the full tablet made her feel light headed. Will discharge to care of .
[2018-12-12 17:44] VITALS: BP 108/47
[2018-12-12] MEDS ORDERED: Ciprofloxacin 500 MG Tab ONE (18:15)
== END 2018-12-12 18:30 | disposition home or self-care (01) ==
LOC: LB.ED 16:35
DX: N39.0 Urinary tract infection, site not specified (principal); I10 Essential (primary) hypertension; K21.9 Gastro-esophageal reflux disease without esophagitis; Z88.0 Allergy status to penicillin; Z88.2 Allergy status to sulfonamides; Z79.899 Other long term (current) drug therapy
CPT/HCPCS: 36415; 80053; 81001; 84484; 85025; 87086; 87088; 87186; 93005; 99284-25; A9270-GY

== ENCOUNTER 2019-02-03 03:48 | Observation (INO) | payer MEDICAID ==
[2019-02-03] MEDS: Ondansetron 4 MG Tab.DIS PO ONE ×2 (04:11→04:23)
[2019-02-03] MEDS ORDERED: Sodium Chloride 0.9% 10 ML Syringe FLUSH PRN (05:05)
[2019-02-03] MEDS ORDERED: Prochlorperazine 10 MG in Sodium Chloride 0.9% 50 ML IV ONE (05:06)
[2019-02-03] MEDS ORDERED: Sodium Chloride 0.9% 1,000 ML IV SCH (05:15)
[2019-02-03] MEDS ORDERED: NS + KCl 20mEq/L 1,000 ML ONE (09:00)
[2019-02-03] MEDS ORDERED: Potassium Chloride 20 MEQ Tab.ER PO ONE (09:05)
[2019-02-03] MEDS ORDERED: NS + KCl 20mEq/L 1,000 ML IV SCH (09:30)
[2019-02-03 09:57] VITALS: BP 116/57
--- NOTE | 2019-02-03 15:07 | ER ---
OBSERVATION NOTE HISTORY: The patient is a 63-year-old female who came in to the ER by private vehicle at about 4 o'clock in the morning. She notes she started vomiting at about 1230 hours. She does not have abdominal pain. She does not have fevers or chills. She had not vomited for the last 20 minutes, but she does state she feels nauseated. She was given a Zofran 4 mg and on further discussion, her had similar symptoms on Monday. The patient has no abdominal pain. She does not have diarrhea. We went ahead and watched her for a while. She still did not have any emesis, but still complained of nausea and she also complained of shortness of breath. She did, however, deny chest pain. Her vital signs were stable. She was normal sinus rhythm. PHYSICAL EXAMINATION: GENERAL: She was alert, oriented, in no apparent distress. VITAL SIGNS: Blood pressure was good. O2 saturation was good. Her vitals initially, temperature is 98.3, pulse 76, blood pressure is 121/45, respiratory rate was 18, and O2 saturation was 100% on room air. Physical exam was otherwise unremarkable. HEENT: Was unremarkable. NECK: Supple. No nodes. LUNGS: Clear. HEART: Regular sinus rhythm. ABDOMEN: Soft, nontender. Positive bowel sounds. No hepatosplenomegaly The patient was in no shortness of breath. We watched her for a while in the ER and she still was not improving a lot, so we went ahead and put her in an observation bed, so we could give her some IV fluids and ordered some labs. LABS: White count was slightly elevated at 12.9, but this is not uncommon after emesis. She was as noted afebrile and had no abdominal pain. Sodium was 135, potassium was 3.3. The patient is on a potassium supplement. Her glucose was 175, BUN was 22, creatinine was 0.73. She did have an elevated BUN to creatinine ratio of 30.1. The patient was initially started on normal saline. She got about 600 mL of that. When her labs came back, we switched her over to normal saline with 20 of potassium and added another 20 of potassium orally and the patient was run at 500 an hour for a bolus dose of a liter of fluid with normal saline. The patient felt dramatically better afterwards. She did, however, have a run of a rapid heart rate which the nurse noted to be irregular. When I Re checked her, her pulse rate was 80 and her heart was regular. When we put her on the monitor, she had one other run very briefly where she appeared to have sinus rhythm at 130 while lying in bed. She was completely asymptomatic with this. We did obtain a troponin which was less than 0.017 and we also obtained a 12-lead EKG. In comparison to her previous EKG, she does appear to have flipped Ts. However, the patient also had a Holter monitor done just last week and has an appointment tomorrow with her metal off bearer in [place], and she was planning on leaving today to go there. After she felt better, she decided she still wanted to go and so she will be going to see her metal off bearer, but I did recommend that she have him recheck her potassium while she is there as it was a little bit low but not drastically so and we did replace it. She can start back in on her usual medications. She had no further emesis after being admitted. Her shortness of breath resolved. Her nausea resolved. She was eating and feeling fine and discharged to home in good condition. ASSESSMENT: Nausea and shortness of breath. REENA/HONG /[id number]
== END 2019-02-03 12:42 | disposition home or self-care (01) ==
LOC: LB.ED 03:48 → LB.MS 05:01 → UNDOADMOB 05:58 → UNDODISOB 12:42
PROVIDERS: ADMIT Family Medicine; ATTEND Family Medicine
DX: R11.2 Nausea with vomiting, unspecified (principal); R06.02 Shortness of breath
CPT/HCPCS: 36415; 80053; 84484; 85025; 93005; 96361; 96374; 99284; A9270-GY; G0378; J0780; J3480; J7030; J7050

== ENCOUNTER 2022-09-08 13:05 | Emergency (ER) | payer MEDICARE ==
[2022-09-08] MEDS ORDERED: Sodium Chloride 0.9% 10 ML Syringe FLUSH PRN (13:07)
[2022-09-08] MEDS ORDERED: GI Cocktail Oral Solution 30 ML PO ONE (14:26)
[2022-09-08] MEDS ORDERED: Potassium Chloride 40 MEQ/20 ML SDV IV STA (14:36)
[2022-09-08] MEDS ORDERED: Potassium Chloride Riders 50 ML ONE (14:48)
[2022-09-08] MEDS ORDERED: Sodium Chloride 0.9% 1,000 ML IV SCH (15:00)
[2022-09-08] MEDS ORDERED: Potassium Chloride Riders 10 MEQ in Premix Bag 1 BAG IV ONE (15:00)
[2022-09-08] MEDS ORDERED: Potassium Chloride 10 MEQ Tab.ER ONE (15:15)
[2022-09-08] MEDS ORDERED: Potassium Chloride 10 MEQ Tab.ER PO ONE (15:20)
[2022-09-08 16:30] VITALS: PULSE 61
[2022-09-08 16:31] VITALS: BP 136/60
== END 2022-09-08 16:00 | disposition home or self-care (01) ==
LOC: LB.ED 13:05
DX: K21.00 Gastro-esophageal reflux disease with esophagitis, without bleeding (principal); I10 Essential (primary) hypertension; J45.909 Unspecified asthma, uncomplicated; M19.90 Unspecified osteoarthritis, unspecified site; E11.9 Type 2 diabetes mellitus without complications; Z88.0 Allergy status to penicillin; Z88.2 Allergy status to sulfonamides; Z79.899 Other long term (current) drug therapy
CPT/HCPCS: 36415; 71045; 80048; 84484; 85027; 93005; 96361; 96365; 99285-25; A0425; A0429; A9270-GY; J3480; J7030

== ENCOUNTER 2024-02-06 19:16 | Emergency (ER) | payer MEDICARE ==
[2024-02-06] MEDS: Aspirin 81 MG Tab.Chew PO ONE (19:44)
[2024-02-06] MEDS: Nitroglycerin 0.4 MG Tab.SL SL PRN (19:46)
[2024-02-06] MEDS ORDERED: Sodium Chloride 0.9% 10 ML Syringe FLUSH PRN (19:52)
[2024-02-06 20:01] LABS: HEMATOCRIT 36.9 % (37.0-47.0); HEMOGLOBIN 12.1 g/dL (11.5-16.5); MEAN CORPUSCULAR HEMOGLOBIN 28.5 pg (27.0-32.0); MEAN CORPUSCULAR HGB CONC 32.8 g/dL (31.0-35.0); RED BLOOD CELL COUNT 4.25 M/uL (3.80-5.80); RED CELL DISTRIBUTION WIDTH 13.9 % (11.0-16.0); WHITE BLOOD CELL COUNT,WBC 9.6 K/uL (4.0-11.0)
[2024-02-06 20:13] LABS: A/G RATIO 1.1 (0.8-2.0); ALBUMIN 3.3 g/dL (3.4-5.0); BILIRUBIN TOTAL 0.7 mg/dL (0.0-1.0); BUN/CREATININE RATIO 30.2 (6-25); CALCIUM 8.8 mg/dL (8.5-10.1); CARBON DIOXIDE,CO2 33.8 mmol/L (21.0-32.0); CREATININE 0.63 mg/dL (0.55-1.02); EST CRCL DRUG DOSING (CG) 64.49 mL/min; POTASSIUM,K 3.8 mmol/L (3.5-5.1); PROTEIN TOTAL,TP 6.3 g/dL (6.4-8.2)
[2024-02-06 23:10] VITALS: BP 122/55; PULSE 61
== END 2024-02-06 22:51 | disposition home or self-care (01) ==
LOC: LB.ED 19:16
DX: M94.0 Chondrocostal junction syndrome [Tietze] (principal); I10 Essential (primary) hypertension; E78.00 Pure hypercholesterolemia, unspecified; K21.9 Gastro-esophageal reflux disease without esophagitis; Z88.0 Allergy status to penicillin; Z88.2 Allergy status to sulfonamides; Z79.51 Long term (current) use of inhaled steroids; Z79.82 Long term (current) use of aspirin; Z79.899 Other long term (current) drug therapy; Z95.0 Presence of cardiac pacemaker
CPT/HCPCS: 36415; 71045; 80053; 84484; 85027; 93005; 99285; A9270-GY

== ENCOUNTER 2024-05-27 10:22 | Emergency (ER) | payer MEDICARE ==
[2024-05-27] MEDS ORDERED: Sodium Chloride 0.9% 10 ML Syringe FLUSH PRN (10:29)
[2024-05-27 11:03] LABS: BASOPHILS ABSOLUTE AUTO 0.02 K/uL (0.02-0.10); BASOPHILS PERCENT AUTO 0.3 % (0.0-0.5); EOSINOPHILS PERCENT AUTO 1.7 % (1.0-5.0); HEMATOCRIT 37.4 % (37.0-47.0); LYMPHOCYTES ABSOLUTE AUTO 1.27 K/uL (1.50-4.00); LYMPHOCYTES PERCENT AUTO 22.1 % (20.0-40.0); MEAN CORPUSCULAR HEMOGLOBIN 27.5 pg (27.0-32.0); MEAN CORPUSCULAR HGB CONC 32.1 g/dL (31.0-35.0); MEAN CORPUSCULAR VOLUME 86 fL (76-96); MEAN PLATELET VOLUME 10.1 fL (6.0-10.0); MONOCYTES ABSOLUTE AUTO 0.68 K/uL (0.20-0.80); MONOCYTES PERCENT AUTO 11.8 % (3.0-10.0); NEUTROPHILS ABSOLUTE AUTO 3.68 K/uL (2.00-7.50); NEUTROPHILS PERCENT AUTO 64.1 % (45.0-70.0); PLATELET COUNT,PLT 286 K/uL (150-500); RED BLOOD CELL COUNT 4.37 M/uL (3.80-5.80); RED CELL DISTRIBUTION WIDTH 13.9 % (11.0-16.0); WHITE BLOOD CELL COUNT,WBC 5.8 K/uL (4.0-11.0)
[2024-05-27 11:31] LABS: A/G RATIO 0.9 (0.8-2.0); ALBUMIN 3.3 g/dL (3.4-5.0); ANION GAP 10.2 mmol/L (5.0-15.0); CALCIUM 9.3 mg/dL (8.5-10.1); CARBON DIOXIDE,CO2 31.2 mmol/L (21.0-32.0); CREATININE 0.64 mg/dL (0.55-1.02); EST CRCL DRUG DOSING (CG) 62.6 mL/min; MAGNESIUM 1.3 mg/dL (1.8-2.4); POTASSIUM,K 3.4 mmol/L (3.5-5.1); PROTEIN TOTAL,TP 7.2 g/dL (6.4-8.2); TROPONIN I HIGH SENSITIVITY 4.1 pg/ml (<=60.4)
[2024-05-27 15:30] VITALS: BP 112/74; PULSE 72
== END 2024-05-27 14:30 | disposition home or self-care (01) ==
LOC: LB.ED 10:22
DX: R07.89 Other chest pain (principal); I10 Essential (primary) hypertension; E78.00 Pure hypercholesterolemia, unspecified; J45.909 Unspecified asthma, uncomplicated; K21.9 Gastro-esophageal reflux disease without esophagitis; E11.9 Type 2 diabetes mellitus without complications; Z79.899 Other long term (current) drug therapy; Z79.82 Long term (current) use of aspirin; Z88.2 Allergy status to sulfonamides; Z88.0 Allergy status to penicillin
CPT/HCPCS: 36415; 71045; 80053; 83735; 83880; 84484; 85025; 93005; 96365; 99285; J3475

== ENCOUNTER 2024-11-23 18:35 | Emergency (ER) | payer MEDICARE ==
[2024-11-23] MEDS ORDERED: Sodium Chloride 0.9% 10 ML Syringe FLUSH PRN (18:48)
[2024-11-23 19:13] LABS: BASOPHILS ABSOLUTE AUTO 0.02 K/uL (0.02-0.10); BASOPHILS PERCENT AUTO 0.3 % (0.0-0.5); EOSINOPHILS ABSOLUTE AUTO 0.15 K/uL (0.04-0.40); EOSINOPHILS PERCENT AUTO 2.4 % (1.0-5.0); HEMATOCRIT 33.5 % (37.0-47.0); LYMPHOCYTES ABSOLUTE AUTO 1.37 K/uL (1.50-4.00); LYMPHOCYTES PERCENT AUTO 22.3 % (20.0-40.0); MEAN CORPUSCULAR HEMOGLOBIN 27.4 pg (27.0-32.0); MEAN CORPUSCULAR HGB CONC 32.8 g/dL (31.0-35.0); MEAN CORPUSCULAR VOLUME 84 fL (76-96); MEAN PLATELET VOLUME 9.3 fL (6.0-10.0); MONOCYTES ABSOLUTE AUTO 0.57 K/uL (0.20-0.80); MONOCYTES PERCENT AUTO 9.3 % (3.0-10.0); NEUTROPHILS ABSOLUTE AUTO 4.02 K/uL (2.00-7.50); NEUTROPHILS PERCENT AUTO 65.7 % (45.0-70.0); PLATELET COUNT,PLT 276 K/uL (150-500); RED BLOOD CELL COUNT 4.01 M/uL (3.80-5.80); RED CELL DISTRIBUTION WIDTH 14.5 % (11.0-16.0); WHITE BLOOD CELL COUNT,WBC 6.1 K/uL (4.0-11.0)
[2024-11-23 19:39] LABS: PTT,PARTIAL THROMBOPLSTIN TIME 22.7 SECONDS (24.4-33.2)
[2024-11-23 19:40] LABS: A/G RATIO 0.9 (0.8-2.0); ALBUMIN 3.1 g/dL (3.4-5.0); BILIRUBIN TOTAL 0.5 mg/dL (0.0-1.0); BUN/CREATININE RATIO 37.5 (6-25); CALCIUM 8.5 mg/dL (8.5-10.1); CARBON DIOXIDE,CO2 29.3 mmol/L (21.0-32.0); CREATININE 0.64 mg/dL (0.55-1.02); EST CRCL DRUG DOSING (CG) 71.64 mL/min; PROTEIN TOTAL,TP 6.4 g/dL (6.4-8.2)
[2024-11-23 19:42] LABS: PROTHROMBIN TIME 10.6 sec (9.0-11.5)
[2024-11-23] MEDS: Pantoprazole 40 MG Vial IVPUSH ONE (19:47)
[2024-11-23 19:56] LABS: ANION GAP 10.5 mmol/L (5.0-15.0); POTASSIUM,K 3.8 mmol/L (3.5-5.1)
[2024-11-23 22:56] VITALS: BP 123/37; PULSE 51
== END 2024-11-23 22:28 | disposition home or self-care (01) ==
LOC: LB.ED 18:35
DX: R07.89 Other chest pain (principal); I10 Essential (primary) hypertension; E78.00 Pure hypercholesterolemia, unspecified; K21.9 Gastro-esophageal reflux disease without esophagitis; E11.9 Type 2 diabetes mellitus without complications; Z79.899 Other long term (current) drug therapy; Z79.51 Long term (current) use of inhaled steroids; Z79.82 Long term (current) use of aspirin; Z88.0 Allergy status to penicillin; Z88.2 Allergy status to sulfonamides
CPT/HCPCS: 36415; 71045; 80053; 84484; 85025; 85610; 85730; 93005; 96374; 99285-25; A0425; A0428; J2470

== ENCOUNTER 2025-06-16 20:03 | Emergency (ER) | payer MEDICARE ==
[2025-06-16 20:35] VITALS: BP 137/58; PULSE 61
== END 2025-06-16 20:38 | disposition home or self-care (01) ==
LOC: LB.ED 20:03
DX: R13.19 Other dysphagia (principal); I10 Essential (primary) hypertension; E78.00 Pure hypercholesterolemia, unspecified; E11.9 Type 2 diabetes mellitus without complications; M19.90 Unspecified osteoarthritis, unspecified site; J45.909 Unspecified asthma, uncomplicated; Z79.899 Other long term (current) drug therapy; Z88.0 Allergy status to penicillin; Z88.2 Allergy status to sulfonamides; Z86.16 Personal history of COVID-19
CPT/HCPCS: 99283